=== PATIENT | female | born 1975 | race Caucasian/White ===

== ENCOUNTER 2016-10-17 19:25 | Emergency (ER) | payer MEDICAID, OTHER ==
[2016-10-17] MEDS ORDERED: SODIUM CHLOR 0.9% 1000 ML INJ 1,000 ML IV SCH (19:30)
--- NOTE | 2016-10-17 19:53 | PD ---
HPI Chief Complaint: Alcohol/Drug Intoxication Time Seen by Provider: 19:30 Travel History International Travel<30 days: No Contact w/Intl Traveler<30days: No Traveled to known affect area: No History of Present Illness HPI 41-year-old female presents to the emergency department by EMS transport for evaluation of alcohol intoxication and abrasions to both knees. Patient reports she has had a fall injuring her knees otherwise is very poor historian. Patient also reports she hit her head but denies loss of consciousness and will not identify what part of her head she reportedly hit. Patient denies any head pain or headache. Patient denies other complaints; no neck, chest, abdomen , back, pelvic, or other extremity injury. Patient refuses to quantitate pain intensity. [facility] Past Medical History Narrative Medical dyslipidemia, alcohol abuse and substance induced mood disorder; facial reconstruction; alcohol use; nursing notes reviewed High Cholesterol: Yes Diminished Hearing: No Past Surgical History Other Surgery: Yes (FACIAL RECONSTRUCTION SX) Social History Alcohol Use: Yes (Reports drinks once a week on her day off) Tobacco Use: Yes (1 PPW "NONE" ) Substance Use: No (PT DENIES ) Allergies-Medications (Allergen,Severity, Reaction): Coded Allergies: No Known Allergies (Unverified , 04/06/16) Reported Meds & Prescriptions Reported Meds & Active Scripts Active Active Prescriptions or Reported Medications Unobtainable Review of Systems Except as stated in HPI: all other systems reviewed are Neg Eyes: No: Visual changes Physical Exam Narrative GENERAL: Well developed, well nourished female intermittently cooperative and intermittently cursing loudly at the staff; GCS 14 . SKIN: Warm and dry. HEAD: Normocephalic. Atraumatic no scalp soft tissue swelling hematoma abrasions lacerations or bony point tenderness or step-off. EYES: No scleral icterus. No injection or drainage. Pupils equal round reactive to light bilaterally. NECK: Supple, trachea midline. No JVD or lymphadenopathy. No midline tenderness to direct palpation along the cervical spine no bony step-off. CARDIOVASCULAR: Regular rate and rhythm without murmurs, gallops, or rubs. Chest wall: Nontender to palpation. RESPIRATORY: Breath sounds equal bilaterally. No accessory muscle use. GASTROINTESTINAL: Abdomen soft, non-tender, nondistended. MUSCULOSKELETAL: No cyanosis, or edema. Bilateral knee abrasions left greater than right; no deformity. Radial and dorsalis pedis pulses 2+ bilaterally to palpation BACK: Nontender without obvious deformity. No CVA tenderness. Data Data Orders Basic Metabolic Panel (Bmp) (10/17/16 19:30) Complete Blood Count With Diff (10/17/16:30) Urinalysis - C+S If Indicated (10/17/16:30) Blood Glucose (10/17/16:30) Iv Access Insert/Monitor (10/17/16:30) Oximetry (10/17/16:30) Sodium Chlor 0.9% 1000 Ml Inj (Ns 1000 M (10/17/16:30) Drug Screen, Random Urine (10/17/16:30) Alcohol (Ethanol) (10/17/16:) Wound Care (10/17/16:30) Ice/Cold Pack (10/17/16:30) Magnesium (Mg) (10/17/16:30) Restraints Non-Violent LORI.Q3H (10/17/16:) MDM Medical Decision Making Medical Screen Exam Complete: Yes Emergency Medical Condition: Yes Medical Record Reviewed: Yes Differential Diagnosis Alcohol intoxication, substance ingestion, mood disorder, contusion, AMS, CHI Narrative Course IV access obtained via EMS and patient In soft restraints and reported as spitting on EMS staff. Patient kept in soft restraints Patient able to ambulate independently as released herself from soft restraints and pulled out her IV access and found ambulating in the ED hallway requesting assistance to the bathroom; patient taken back to exam room. Patient refusing treatment. Does not have access to family or adult friend to take responsibility for her while she sleeps off alcohol intoxication. While in with another patient informed by charge nurse that [place] Police department contacted and patient taken from the ED in their custody. Patient is otherwise medically cleared and warrants safe local to sleep off admitted alcohol ingestion/intoxication. Diagnosis Primary Impression: Alcohol intoxication Referrals: [facility] for appointment Patient Instructions: General Instructions Additional Instructions: discontinue alcohol use recommend detox resources through [facility] or [facility] Unable to Obtain Active Prescriptions or Reported Meds Disposition: [address] LAW ENFORCEMNT Condition: Stable Sabina Draper MD Oct 17, 2016 19:53
== END 2016-10-17 21:16 ==
LOC: PHED 19:25
DX: F10.129 Alcohol abuse with intoxication, unspecified (principal); S80.212A Abrasion, left knee, initial encounter; S80.211A Abrasion, right knee, initial encounter; E78.00 Pure hypercholesterolemia, unspecified; E78.5 Hyperlipidemia, unspecified; F19.94 Other psychoactive substance use, unspecified with psychoactive substance-induced mood disorder; F17.210 Nicotine dependence, cigarettes, uncomplicated; W19.XXXA Unspecified fall, initial encounter; Y93.9 Activity, unspecified; Y92.9 Unspecified place or not applicable; Y99.8 Other external cause status
CPT/HCPCS: 99284